=== PATIENT | female | born 1945 | race Caucasian/White ===

== ENCOUNTER → 2016-11-08 | Outpatient (CLI) | payer BC ==
[~2016-11-08] MED LIST: CALCIUM600 M1 PO; CELEBREX50 MG PO; CEPHALEXIN500 M1 PO; NO HOME MEDICATIONS; VALIUM 10MG10 MG/TAB PO; VITAMIN C500 MG PO
== END ==
LOC: MC.RAD 07:00
DX: Z12.31 Encounter for screening mammogram for malignant neoplasm of breast (principal)

== ENCOUNTER → 2017-02-06 | Outpatient (CLI) | payer BC | LOC: COL.RAD 14:01 | DX: S63.591A Other specified sprain of right wrist, initial encounter (principal); M94.8X8 Other specified disorders of cartilage, other site; R60.0 Localized edema; M19.031 Primary osteoarthritis, right wrist; M77.8 Other enthesopathies, not elsewhere classified; M25.831 Other specified joint disorders, right wrist | CPT/HCPCS: A9585; Q9967 ==

== ENCOUNTER → 2017-02-14 | Outpatient (CLI) | payer BC | LOC: COL.RAD 10:57 | DX: M19.031 Primary osteoarthritis, right wrist (principal) | CPT/HCPCS: J3301; Q9967 ==

== ENCOUNTER → 2018-02-02 | Outpatient (CLI) | payer BC | LOC: MC.RAD 14:18 | DX: Z12.31 Encounter for screening mammogram for malignant neoplasm of breast (principal); C50.911 Malignant neoplasm of unspecified site of right female breast ==

== ENCOUNTER → 2019-04-06 | Outpatient (CLI) | payer BC | LOC: COL.PUL 08:00 | DX: C34.11 Malignant neoplasm of upper lobe, right bronchus or lung (principal); C34.12 Malignant neoplasm of upper lobe, left bronchus or lung; Z87.891 Personal history of nicotine dependence ==

== ENCOUNTER 2020-05-11 10:19 | Outpatient (RCR) | payer BC ==
[~2020-05-11] VITALS: Ht 165.1 cm; Wt 48.3 kg
[2020-05-11] VITALS (9 sets, daily range): BP systolic 111–136; BP diastolic 66–80; PULSE 76–95; TEMP 98.5–99.6
[2020-05-11] MEDS ORDERED: PRIL40 PO (12:26)
[2020-05-11] MEDS ORDERED: FOLIC ACID 11 MG/TA1 PO (12:29)
[2020-05-11] MEDS ORDERED: DECADRON 4MG TAB4 MG PO (12:29)
[2020-05-11] MEDS ORDERED: OSCAL 500 TAB500 MG PO (12:31)
[2020-05-11] MEDS ORDERED: VITAMIN B12 1541 TAB PO (12:31)
[2020-05-11] MEDS ORDERED: VITAMIN B11000 MCG/M IM (12:32)
== END 2020-05-11 17:00 | disposition home or self-care (01) ==
LOC: EUO 10:19
DX: C34.32 Malignant neoplasm of lower lobe, left bronchus or lung (principal); C34.11 Malignant neoplasm of upper lobe, right bronchus or lung; C34.12 Malignant neoplasm of upper lobe, left bronchus or lung; D05.11 Intraductal carcinoma in situ of right breast
CPT/HCPCS: J7050; P9016

== ENCOUNTER 2020-08-03 11:13 | Outpatient (RCR) | payer BC ==
[~2020-08-03] VITALS: Ht 165.1 cm; Wt 47.6 kg
[2020-08-03] VITALS (10 sets, daily range): BP systolic 88–108; BP diastolic 58–82; PULSE 58–101; TEMP 98.2–99
[~2020-08-03 11:13] MED LIST changes: +DECADRON 4MG TAB4 MG PO; +FOLIC ACID 11 MG/TA1 PO; +OSCAL 500 TAB500 MG PO; +PRIL40 PO; +VITAMIN B11000 MCG/M IM; +VITAMIN B12 1541 TAB PO
[2020-08-03] MEDS ORDERED: ALIMTA100 MG IV (13:58)
[2020-08-03] MEDS ORDERED: ZOMETA4 MG/100 M IV (13:58)
== END 2020-08-09 08:05 | disposition still patient (30) ==
LOC: EUO 11:13
DX: C34.32 Malignant neoplasm of lower lobe, left bronchus or lung (principal); D05.11 Intraductal carcinoma in situ of right breast
CPT/HCPCS: J7050; P9016